=== PATIENT | female | born 1945 | race Native Hawaiian/Other Pacific Islander ===

== ENCOUNTER 2016-08-14 14:35 | Inpatient (IN) | payer OTHER, MEDICAID ==
[2016-08-14 15:40] LABS: BASO # 0.1 K/uL (0.0-0.2); BASO % 0.8 % (0.0-2.0); EOS % 0.2 % (0.0-4.0); HEMATOCRIT 27.6 % (34.0-47.0); LYMPH # 1.7 K/uL (1.0-4.3); LYMPH % 14.7 % (20.0-40.0); MEAN CELL VOLUME 96.6 fL (81.0-99.0); MEAN CORPUSCULAR HEMOGLOBIN 31.6 pg (27.0-31.0); MEAN CORPUSCULAR HGB CONC 32.7 g/dL (33.0-37.0); MEAN PLATELET VOLUME 8.9 fL (7.2-11.7); MONO % 8.4 % (0.0-10.0); RED CELL DISTRIBUTION WIDTH 18.6 % (11.5-14.5); WHITE BLOOD COUNT 11.8 K/uL (4.8-10.8)
--- NOTE | 2016-08-14 15:43 | C.PDOC ---
History Of Present Illness 70-year-old female, PMHx includes Pancreatic CA, on hospice w/ Biliary drain, presents to the emergency department with complaints of worsening abdominal pain , distention and nausea. as per family, pt had "fluid drained" a few weeks ago at another facility. family advises pt is no longer receiving treatment for her malignany. Patient denies fevers or any other complaints at this time. Time Seen by Provider: 08/14/16 14:54 Chief Complaint (Nursing): Abdominal Pain History Per: Patient History/Exam Limitations: no limitations Onset/Duration Of Symptoms: Days Current Symptoms Are (Timing): Still Present Severity: Moderate Past Medical History Reviewed: Historical Data, Nursing Documentation, Vital Signs Vital Signs: Last Vital Signs Temp 97.6 F 08/15/16 07:36 Pulse 80 08/15/16 07:36 Resp 20 08/15/16 07:36 BP 120/74 08/15/16 07:36 Pulse Ox 98 08/15/16 07:36 - Medical History PMH: HTN Family History: States: No Known Family Hx - Social History Hx Alcohol Use: No Hx Substance Use: No - Immunization History Hx Tetanus Toxoid Vaccination: No Hx Influenza Vaccination: No Hx Pneumococcal Vaccination: No Review Of Systems Except As Marked, All Systems Reviewed And Found Negative. Constitutional: Negative for: Fever Gastrointestinal: Positive for: Nausea, Abdominal Pain ((+) distention). Negative for: Vomiting, Diarrhea Musculoskeletal: Negative for: Back Pain Physical Exam - Physical Exam Appears: Non-toxic, No Acute Distress, Other (Cachectic) Skin: Warm, Dry, No Rash Oral Mucosa: Moist Neck: Normal ROM Cardiovascular: Rhythm Regular Respiratory: Normal Breath Sounds, No Accessory Muscle Use Gastrointestinal/Abdominal: Soft, Tenderness (non focal. diffuse), No Guarding, No Rebound, Other (Biliary drain) Extremity: Left: No Pedal Edema ED Course And Treatment - Laboratory Results Result Diagrams: 08/15/16 07:08 08/15/16 07:08 O2 Sat by Pulse Oximetry: 100 Medical Decision Making Medical Decision Making: pt on hospice. discussed extensively at bedside about goals of care. specifically requesting pt be evaluated for abdominal pain, and "have fluid taken out". agree to ct imaing. r/o ascities, complication of biliary stent. 630: noted ct with moderate ascities. again discussed goals of care with family. family requesting pt be admitted and have eval by possible drainage. dr lynch accepts. family confirms that pt has dni/dnr. Disposition - Disposition Disposition: HOSPITALIZED Disposition Time: 18:29 Condition: STABLE - Clinical Impression Clinical Impression: Ascites, Abdominal pain - Scribe Statement The provider has reviewed the documentation as recorded by the Karinaibtyrel Cherry All medical record entries made by the Scribe were at my direction and personally dictated by me. I have reviewed the chart and agree that the record accurately reflects my personal performance of the history, physical exam, medical decision making, and the department course for this patient. I have also personally directed, reviewed, and agree with the discharge instructions and disposition. Decision To Admit - Pt Status Changed To: Hospital Disposition Of: Inpatient - Admit Certification Admit to Inpatient:: After my assessment, the patient will require hospitalization for at least two midnights. This is because of the severity of symptoms shown, intensity of services needed, and/or the medical risk in this patient being treated as an outpatient. - InPatient: Physician Admission Certification:: pt will need possible drainage of ascites, eval by surgery for biliary drain - . Bed Request Type: Regular Admitting Physician: Abel Lynch Jr. Patient Diagnosis: Ascites, Abdominal pain
[2016-08-14 15:44] LABS: CHLORIDE 100 mmol/L (98-107); POTASSIUM 3.9 mmol/L (3.6-5.2); SODIUM 130 mmol/L (132-148)
[2016-08-14 15:46] LABS: GFR AFRICAN-AMERICAN > 60
[2016-08-14 15:47] LABS: ALB/GLOB RATIO 0.5 (1.0-2.1); ALKALINE PHOSPHATASE 208 U/L (38-126); ALT/SGPT 24 U/L (9-52); AST/SGOT 46 U/L (14-36); BILIRUBIN,TOTAL 4.4 mg/dL (0.2-1.3); BLOOD UREA NITROGEN 9 mg/dL (7-17); CALCIUM 7.3 mg/dl (8.6-10.4); CARBON DIOXIDE 22 mmol/L (22-30); GLUCOSE,RANDOM 219 mg/dL (65-105); TOTAL PROTEIN 6.3 g/dL (6.3-8.3)
[2016-08-14 16:35] LABS: INR 1.4
[2016-08-14] MEDS ORDERED: Iodixanol 320 MG/ML 100 ML BOTTLE IV ONE (16:55)
--- NOTE | 2016-08-14 18:22 | CT ---
PROCEDURE: CT Abdomen and Pelvis with contrast HISTORY: abd pain/distention ho of pancreatic ca COMPARISON: None. TECHNIQUE: Contrast dose: 100 mL Visipaque 320. Axial and reformatted coronal and sagittal CT images of the abdomen and pelvis were obtained after IV contrast administration. Radiation dose: Total exam DLP = 431.75 mGy-cm. This CT exam was performed using one or more of the following dose reduction techniques: Automated exposure control, adjustment of the mA and/or kV according to patient size, and/or use of iterative reconstruction technique. FINDINGS: LOWER THORAX: Cardiomegaly is seen. There is a small right pleural effusion. LIVER: There is suspicious for cirrhotic changes. There are multiple low lesions in the liver suspicious for metastasis. There is percutaneous biliary drainage through left liver lobe extending to the common bile duct and extending to the duodenum. GALLBLADDER AND BILE DUCTS: The gallbladder is mildly to moderately distended. PANCREAS: Pancreatic mass lesion is noted. The pancreatic body and tail is atrophy K associated with dilated main pancreatic duct. SPLEEN: Unremarkable. ADRENALS: Unremarkable. No mass. KIDNEYS AND URETERS: Unremarkable. No hydronephrosis. No solid mass. There is 9 millimeters cyst seen in the midpole right kidney. VASCULATURE: Unremarkable. No aortic aneurysm. BOWEL: Moderate the stomach wall thickening seen. Mildly dilated small bowel loops demonstrate diffuse wall thickening. No evidence of high-grade bowel obstruction APPENDIX: No evidence of appendicitis. PERITONEUM: Moderate to large amount of ascites seen. LYMPH NODES: Mildly enlarged lymph nodes seen the upper abdomen. BLADDER: Unremarkable. REPRODUCTIVE: Unremarkable. BONES: No acute fracture. OTHER FINDINGS: [id number] soft tissue edema/ anasarca seen. IMPRESSION: Pancreatic head mass. Multiple lesions in the liver suggestive of metastasis. Percutaneous biliary drainage extending to the duodenum. Moderate amount of ascites in the abdomen and pelvis. Moderate stomach wall thickening and mildly dilated small bowel loops demonstrate [id number] wall thickening.
--- NOTE | 2016-08-14 20:17 | CP.PCM.HP ---
History of Present Illness - History of Present Illness History of Present Illness: CC:" stomach pains and belly getting bigger" 70 F with PMH of Pancreatic CA on hospice w/ Biliary drain presents to the emergency department for complaints of worsening abdominal pain/distention and nausea. Patient's family was bedside and provided most of the history. Family states that patient has been experiencing these symptoms for about 1 week and have gotten worse over the last 2 days. They report that the patient have never experienced pain or distention like this in the past. She has also had decreased appetite over the last few months. Patient does not follow with an Oncologist, only a Surgeon at [facility]. She was placed on hospice since the malignancy is encompassing the pancreatic head, vessels, and a portion of the liver. Six months ago she had a gastric bypass due to an obstruction in the duodenum. Last week, the patient had a cholecystotomy tube placed to relieve a biliary obstruction. Patient rated the pain 9/10 in severity. She described the pain as a constant discomfort located diffusely throughout the abdomen. Patient denies any alleviating or exacerbating factors. Patient reports to having normal BMs and flatus. Admits to weakness, weight loss, anorexia, abd pain, nausea. Denies fever/chills, cp, sob, vomiting, diarrhea, constipation, numbness /tingling, palpitations, incontinence, weight gain, LE edema. Surgeon: at [facility] PMH: Pancreatic CA, HTN Meds: As per EMR Allergy: NKDA PSH: Gastrojejunostomy, Chloecystotomy Hosp: Gastrojejunostomy, Pancreatic CA FH: Denies Social: Denies tobacco/ETOH/illicit drug use, lives with family Present on Admission - Present on Admission Any Indicators Present on Admission: No History of DVT/PE: No History of Uncontrolled Diabetes: No Urinary Catheter: No Decubitus Ulcer Present: No Review of Systems - Constitutional Constitutional: Anorexia, Weight Loss. absent: Chills, Fever, Headache, Weight Gain - EENT Eyes: absent: Blurred Vision, Change in Vision, Loss of Peripheral Vision Ears: absent: Ear Discharge, Ear Pain, Dizziness Nose/Mouth/Throat: absent: Nasal Congestion, Nasal Discharge, Sore Throat, Neck Mass - Breasts Breasts: absent: Mass, Pain, Swelling - Cardiovascular Cardiovascular: Leg Edema. absent: Chest Pain, Chest Pain at Rest, Chest Pain with Activity, Dyspnea, Palpitations, Syncope - Respiratory Respiratory: absent: Cough, Dyspnea, Hemoptysis, Dyspnea on Exertion, Wheezing - Gastrointestinal Gastrointestinal: Abdominal Pain, Bloating, Early Satiety, Nausea. absent: Belching, Change in Bowel Habits, Coffee Ground Emesis, Constipation, Diarrhea, Dysphagia, Fecal Incontinence, Hematemesis, Hematochezia, Melena, Vomiting - Genitourinary Genitourinary: absent: Change in Urinary Stream, Difficulty Urinating, Dysuria, Urinary Incontinence - Musculoskeletal Musculoskeletal: Arthralgias, Myalgias - Integumentary Integumentary: absent: Changing Lesions, New Lesions - Neurological Neurological: Weakness. absent: Dizziness, Numbness, Headaches, Loss of Vision , Syncope, Tingling, Tremor, Vertigo - Psychiatric Psychiatric: absent: Anxiety, Depression, Homicidal Ideation, Suicidal Ideation - Endocrine Endocrine: Fatigue. absent: Palpitations, Polydipsia, Polyphagia, Polyuria - Hematologic/Lymphatic Hematologic: absent: Easy Bleeding, Easy Bruising, Lymphadenopathy Past Patient History - Past Social History Smoking Status: Never Smoked - CARDIAC Hx Hypertension: Yes - ENDOCRINE/METABOLIC Hx Diabetes Mellitus Type 1: Yes - HEMATOLOGICAL/ONCOLOGICAL Other/Comment: Liver Ca - PSYCHIATRIC Hx Substance Use: No - SURGICAL HISTORY Hx Surgeries: Yes Hx Gastric Bypass Surgery: Yes Other/Comment: Bile drain - ANESTHESIA Hx Anesthesia: Yes Hx Anesthesia Reactions: No Meds Allergies/Adverse Reactions: Allergies Allergy/AdvReac Type Severity Reaction Status Date / Time No Known Allergies Allergy Unverified 08/14/16 14:57 Physical Exam - Constitutional Appears: No Acute Distress - Head Exam Head Exam: ATRAUMATIC, NORMOCEPHALIC - Eye Exam Eye Exam: EOMI, Normal appearance, Scleral icterus Pupil Exam: PERRL - ENT Exam ENT Exam: Mucous Membranes Dry - Neck Exam Neck exam: Positive for: Normal Inspection - Respiratory Exam Respiratory Exam: Clear to Auscultation Bilateral, NORMAL BREATHING PATTERN - Cardiovascular Exam Cardiovascular Exam: REGULAR RHYTHM, +S1, +S2 - GI/Abdominal Exam GI & Abdominal Exam: Diminished Bowel Sounds, Distended, Guarding (voluntary on deep palpation), Soft, Tenderness (diffuse). absent: Firm, Rebound, Rigid Additional comments: (+) shifting dullness (+) fluid wave cholecystotomy tub ein place drain dark orange-yellow fluid - Extremities Exam Extremities exam: Positive for: normal capillary refill, pedal edema, pedal pulses present. Negative for: calf tenderness, tenderness - Back Exam Back exam: absent: CVA tenderness (L), CVA tenderness (R) - Neurological Exam Neurological exam: Alert, CN II-XII Intact, Oriented x3 - Psychiatric Exam Psychiatric exam: Normal Affect, Normal Mood - Skin Skin Exam: Dry, Intact Results - Vital Signs Recent Vital Signs: Last Vital Signs Temp 98.0 F 08/14/16 14:38 Pulse 79 08/14/16 19:35 Resp 16 08/14/16 19:35 BP 148/74 08/14/16 19:35 Pulse Ox 97 08/14/16 19:35 - Labs Result Diagrams: 08/14/16 15:30 08/14/16 15:30 Assessment & Plan - Assessment and Plan (Free Text) Plan: 1. Abdominal Pain/distention history of Pancreatic Ca with liver metastases with Ascites Ct abd/pelvis: Pancreatic head mass. Multiple lesions in the liver suggestive of metastasis. Percutaneous biliary drainage extending to the duodenum. Moderate amount of ascites in the abdomen and pelvis. Moderate stomach wall thickening and mildly dilated small bowel loops demonstrate [id number] wall thickening (see full report) Colace 100 mg PO TID Sennosides A B 8.6 mg PO BID Lasix 20 mg PO daily Zofran 4 mg IVP Q6H PRN nausea Dilaudid 0.5 mg IVP Q4H PRN pain 2. History of Pancreatic CA Pancreatic enzymes 4,[address] abd/pelvis: Pancreatic head mass. Multiple lesions in the liver suggestive of metastasis. Percutaneous biliary drainage extending to the duodenum. Moderate amount of ascites in the abdomen and pelvis. Moderate stomach wall thickening and mildly dilated small bowel loops demonstrate [id number]-ko-emellvwi wall thickening (see full report) 3. HTN Amlodipine 5 mg PO daily Lasix 20 mg PO daily 4. Prophylactic Measures Prontonix 40 mg IVP daily SCDs contraindicated HOLD chemical anticoagulation for possible therapeutic paracentesis Colace 100 mg PO TID Sennosides A B 8.6 mg PO BID
[2016-08-14 20:36] VITALS: RESP 20
[2016-08-14] MEDS: HYDROmorphone 0.5 mg/0.5 ml ISec IVP PRN (22:49)
--- NOTE | 2016-08-15 07:17 | CP.PCM.PN ---
<IdrisAlyson - Last Filed: 08/15/16 13:18> Subjective - Date & Time of Evaluation Date of Evaluation: 08/15/16 Time of Evaluation: 07:15 - Subjective Subjective: PLEASE NOTE: PATIENT HAS BEEN TRANSFERRED TO DR. Maria Luisa MAE[facility] AT FAMILY'S REQUEST. PGY1 Medicine note for Dr. Flynn Patient seen and examined at bedside. Patient continues to complain of dull abdominal pain and distention which is what brought her in. She denied headache , dizziness, chest pain, palpitations, SOB, cough, nausea, vomiting, bowel/ bladder complaints, pain/swelling of her legs bilaterally. Her at bedside reported she has had a decreased appetite and has had the abdominal pain for a while which has been worsening which is why she came in to the hospital. Objective - Vital Signs/Intake and Output Vital Signs (last 24 hours): Temp Pulse Resp BP Pulse Ox 97.9 F 77 20 143/79 100 08/15/16 00:00 08/15/16 00:00 08/15/16 00:00 08/14/16 20:10 08/15/16 00:00 Intake and Output: 08/15/16 08/15/16 06:59 18:59 Intake Total 150 Balance 150 - Medications Medications: Current Medications Amlodipine Besylate (Norvasc) 5 mg PO DAILY STEPHANIE Docusate Sodium (Colace) 100 mg PO TID STEPHANIE Furosemide (Lasix) 20 mg PO DAILY STEPHANIE Hydromorphone HCl (Dilaudid) 0.5 mg IVP Q4H PRN PRN Reason: Pain, moderate (4-7) Last Admin: 08/14/16 22:49 Dose: 0.5 mg Ondansetron HCl (Zofran Inj) 4 mg IVP Q6 PRN PRN Reason: Nausea/Vomiting Pantoprazole Sodium (Protonix Inj) 40 mg IVP DAILY [facility] Pneumococcal Polyvalent Vaccine (Pneumovax 23 Vaccine) 0.5 ml IM .ONCE ONE Stop: 08/16/16 10:01 Sennosides (Senokot Tab) 8.6 mg PO BID STEPHANIE - Labs Labs: PT 15.8 SECONDS (9.7-12.2) H 08/14/16 16:22 INR 1.4 08/14/16 16:22 APTT 27 SECONDS (21-34) 08/14/16 16:22 Assessment and Plan - Assessment and Plan (Free Text) Assessment: PLEASE NOTE: PATIENT HAS BEEN TRANSFERRED TO DR. Maria Luisa [facility] AT FAMILY[facility]S REQUEST. Plan: PLEASE NOTE: PATIENT HAS BEEN TRANSFERRED TO DR. Maria Luisa [facility] AT FAMILY'S REQUEST. <Abel Flynn Jr. - Last Filed: 08/18/16 11:08> Objective - Vital Signs/Intake and Output Vital Signs (last 24 hours): Temp Pulse Resp BP Pulse Ox 98.5 F 95 H 20 120/79 97 08/16/16 16:44 08/16/16 16:44 08/16/16 16:44 08/16/16 16:44 08/16/16 16:44 - Labs Labs: 08/16/16 06:59 08/16/16 06:59 PT 14.8 SECONDS (9.7-12.2) H 08/15/16 07:08 INR 1.3 08/15/16 07:08 APTT 23 SECONDS (21-34) 08/15/16 07:08 Attending/Attestation - Attestation I have personally seen and examined this patient.: Yes I have fully participated in the care of the patient.: Yes I have reviewed all pertinent clinical information, including history, physical exam and plan: Yes Notes (Text): 08/18/16 11:07 Agree with resident note and plan of care
[2016-08-15 07:25] LABS: BASO # 0.1 K/uL (0.0-0.2); BASO % 1.1 % (0.0-2.0); EOS # 0.1 K/uL (0.0-0.7); EOS % 0.6 % (0.0-4.0); HEMATOCRIT 29.2 % (34.0-47.0); LYMPH # 1.8 K/uL (1.0-4.3); LYMPH % 18.3 % (20.0-40.0); MEAN CELL VOLUME 96.3 fL (81.0-99.0); MEAN CORPUSCULAR HEMOGLOBIN 32.1 pg (27.0-31.0); MEAN CORPUSCULAR HGB CONC 33.4 g/dL (33.0-37.0); MEAN PLATELET VOLUME 8.8 fL (7.2-11.7); MONO # 0.9 K/uL (0.0-0.8); MONO % 9.2 % (0.0-10.0); NRBC % 0.1 % (0.0-2.0); RED CELL DISTRIBUTION WIDTH 18.5 % (11.5-14.5); WHITE BLOOD COUNT 9.9 K/uL (4.8-10.8)
[2016-08-15 07:34] LABS: INR 1.3
[2016-08-15 07:41] LABS: CHLORIDE 100 mmol/L (98-107); SODIUM 131 mmol/L (132-148)
[2016-08-15 07:44] LABS: ALB/GLOB RATIO 0.5 (1.0-2.1); ALKALINE PHOSPHATASE 215 U/L (38-126); ALT/SGPT 25 U/L (9-52); AST/SGOT 48 U/L (14-36); BILIRUBIN,TOTAL 4.5 mg/dL (0.2-1.3); BLOOD UREA NITROGEN 9 mg/dL (7-17); CALCIUM 7.7 mg/dl (8.6-10.4); CARBON DIOXIDE 25 mmol/L (22-30); GFR AFRICAN-AMERICAN > 60; GLUCOSE,RANDOM 139 mg/dL (65-105); TOTAL PROTEIN 6.5 g/dL (6.3-8.3)
[2016-08-15] MEDS: LIPASE/PROTEASE/AMYLASE 4,200 U ECC PO SCH ×3 (10:50→17:44)
[2016-08-15] MEDS: HYDROmorphone 0.5 mg/0.5 ml ISec IVP PRN ×2 (12:32→19:57)
--- NOTE | 2016-08-15 13:12 | CP.PCM.CON ---
History of Present Illness - History of Present Illness History of Present Illness: Palliative consult Requested by Jaymie CISSE Reason: goals of care, hospice Patient is a 70 yo lady admitted from home with worsening abdominal pain. As per , patient was at home with [facility] for 2 days only. Patient could not tolerate abdominal distention and family brought her to ED. The CT abdomen was significant for abd ascites and metastatic liver disease. Patient was started on Lasix and Dilaudid. PMH: pancreatic CA, biliary drain Soc. hx: lives at home Fam. hx: unknown Review of Systems - Constitutional Constitutional: Weakness - EENT Eyes: absent: As Per HPI, Blind Spots, Blurred Vision, Change in Vision, Decreased Night Vision, Diplopia, Discharge, Dry Eye, Exophthalmos, Floaters, Irritation, Itchy Eyes, Loss of Peripheral Vision, Pain, Photophobia, Requires Corrective Lenses, Sees Flashes, Spots in Vision, Tunnel Vision, Other Visual Disturbances, Loss of Vision, Other Ears: absent: As Per HPI, Decreased Hearing, Ear Discharge, Ear Pain, Tinnitus, Abnormal Hearing, Disequilibrium, Dizziness, Other Nose/Mouth/Throat: absent: As Per HPI, Epistaxis, Nasal Congestion, Nasal Discharge, Nasal Obstruction, Nasal Trauma, Nose Pain, Post Nasal Drip, Sinus Pain, Sinus Pressure, Bleeding Gums, Change in Voice, Dental Pain, Dry Mouth, Dysphagia, Halitosis, Hoarsness, Lip Swelling, Mouth Lesions, Mouth Pain, Odynophagia, Sore Throat, Throat Swelling, Tongue Swelling, Facial Pain, Neck Pain, Neck Mass, Other - Breasts Breasts: absent: As Per HPI, Change in Shape, Mass, Pain, Nipple Discharge, Nipple Inversion, Skin Changes, Swelling, Other - Cardiovascular Cardiovascular: Edema - Respiratory Respiratory: Dyspnea on Exertion - Gastrointestinal Gastrointestinal: Bloating, Nausea - Genitourinary Genitourinary: absent: As Per HPI, Change in Urinary Stream, Difficulty Urinating, Dysuria, Flank Pain, Hematuria, Pyuria, Nocturia, Urinary Incontinence, Urinary Frequency, Urinary Hesitance, Urinary Urgency, Voiding Freq/Small Amts, Freq UTI, Hx Renal/Bladder Calculi, Hx /Renal Surgery, Bladder Distension, Other - Reproductive: Female Reproductive:Female: Post Menopausal - Menstruation Menstruation: Post Menopausal - Musculoskeletal Musculoskeletal: Muscle Weakness - Integumentary Integumentary: Dry Skin - Neurological Neurological: Weakness - Psychiatric Psychiatric: absent: As Per HPI, Abnormal Sleep Pattern, Anhedonia, Anxiety, Auditory Hallucinations, Behavioral Changes, Change in Appetite, Change in Libido, Confusion, Depression, Difficulty Concentrating, Hallucinations, Homicidal Ideation, Hopelessness, Irritability, Memory Loss, Mood Swings, Panic Attacks, Paranoia, Suicidal Ideation, Visual Hallucinations, Tactile Hallucinations, Other - Endocrine Endocrine: absent: As Per HPI, Change in Body Appearance, Change in Libido, Cold Intolorance, Deepening of Voice, Excessive Sweating, Fatigue, Flushing, Heat Intolorance, Increase in Ring/Shoe/Hat Size, Palpitations, Polydipsia, Polyphagia, Polyuria, Other - Hematologic/Lymphatic Hematologic: absent: As Per HPI, Easy Bleeding, Easy Bruising, Lymphadenopathy, Other Past Patient History - Past Social History Smoking Status: Never Smoked - CARDIAC Hx Hypertension: Yes - ENDOCRINE/METABOLIC Hx Diabetes Mellitus Type 1: Yes - HEMATOLOGICAL/ONCOLOGICAL Other/Comment: Liver Ca - MUSCULOSKELETAL/RHEUMATOLOGICAL Hx Falls: No - PSYCHIATRIC Hx Substance Use: No - SURGICAL HISTORY Hx Surgeries: Yes Hx Gastric Bypass Surgery: Yes Other/Comment: Bile drain - ANESTHESIA Hx Anesthesia: Yes Hx Anesthesia Reactions: No Meds Allergies/Adverse Reactions: Allergies Allergy/AdvReac Type Severity Reaction Status Date / Time No Known Allergies Allergy Unverified 08/14/16 14:57 - Medications Medications: Current Medications Amlodipine Besylate (Norvasc) 5 mg PO DAILY [facility] Last Admin: 08/15/16 10:50 Dose: 5 mg Docusate Sodium (Colace) 100 mg PO TID [facility] Last Admin: 08/15/16 10:49 Dose: 100 mg Furosemide (Lasix) 20 mg PO DAILY [facility] Last Admin: 08/15/16 10:49 Dose: 20 mg Hydromorphone HCl (Dilaudid) 0.5 mg IVP Q4H PRN PRN Reason: Pain, moderate (4-7) Last Admin: 08/15/16 12:32 Dose: 0.5 mg Ondansetron HCl (Zofran Inj) 4 mg IVP Q6 PRN PRN Reason: Nausea/Vomiting Pantoprazole Sodium (Protonix Inj) 40 mg IVP DAILY [facility] Last Admin: 08/15/16 10:49 Dose: 40 mg Pneumococcal Polyvalent Vaccine (Pneumovax 23 Vaccine) 0.5 ml IM .ONCE ONE Stop: 08/16/16 10:01 Sennosides (Senokot Tab) 8.6 mg PO BID [facility] Last Admin: 08/15/16 10:49 Dose: 8.6 mg Physical Exam - Constitutional Appears: Chronically Ill - Head Exam Head Exam: ATRAUMATIC, NORMAL INSPECTION, NORMOCEPHALIC - Eye Exam Eye Exam: EOMI, Normal appearance, PERRL Pupil Exam: NORMAL ACCOMODATION, PERRL Additional comments: sclera yellow - ENT Exam ENT Exam: Mucous Membranes Dry - Neck Exam Neck exam: Positive for: Normal Inspection - Respiratory Exam Respiratory Exam: Decreased Breath Sounds, NORMAL BREATHING PATTERN - Cardiovascular Exam Cardiovascular Exam: Tachycardia, REGULAR RHYTHM, +S1, +S2 - GI/Abdominal Exam GI & Abdominal Exam: Distended, Guarding, Hypoactive Bowel Sounds - Rectal Exam Rectal Exam: Deferred - Extremities Exam Extremities exam: Positive for: pedal edema - Back Exam Back exam: CVA tenderness (R) - Neurological Exam Neurological exam: Alert, Oriented x3 - Psychiatric Exam Psychiatric exam: Anxious - Skin Additional comments: jaundice Results - Vital Signs Recent Vital Signs: Last Vital Signs Temp 97.6 F 08/15/16 07:36 Pulse 80 08/15/16 07:36 Resp 20 08/15/16 07:36 BP 120/74 08/15/16 10:49 Pulse Ox 100 08/15/16 09:13 - Labs Result Diagrams: 08/15/16 07:08 08/15/16 07:08 Labs: Laboratory Results - last 24 hr 08/14/16 08/15/16 08/15/16 21:09 07:08 07:08 WBC 9.9 RBC 3.03 L Hgb 9.7 L Hct 29.2 L MCV 96.3 MCH 32.1 H MCHC 33.4 RDW 18.5 H Plt Count 369 MPV 8.8 Neut % (Auto) 70.8 Lymph % (Auto) 18.3 L Howell % (Auto) 9.2 Eos % (Auto) 0.6 Baso % (Auto) 1.1 Neut # 7.0 Lymph # 1.8 Howell # 0.9 H Eos # 0.1 Baso # 0.1 PT 14.8 H INR 1.3 APTT 23 Sodium Potassium Chloride Carbon Dioxide Anion Gap BUN Creatinine Est GFR ( Amer) Est GFR (Non-Af Amer) POC Glucose (mg/dL) 165 H Random Glucose Calcium Total Bilirubin AST ALT Alkaline Phosphatase Total Protein Albumin Globulin Albumin/Globulin Ratio 08/15/16 08/15/16 08/15/16 07:08 07:16 11:18 WBC RBC Hgb Hct MCV MCH MCHC RDW Plt Count MPV Neut % (Auto) Lymph % (Auto) Howell % (Auto) Eos % (Auto) Baso % (Auto) Neut # Lymph # Howell # Eos # Baso # PT INR APTT Sodium 131 L Potassium 4.0 Chloride 100 Carbon Dioxide 25 Anion Gap 10 BUN 9 Creatinine 0.6 L Est GFR ( Amer) > 60 Est GFR (Non-Af Amer) > 60 POC Glucose (mg/dL) 165 H 206 H Random Glucose 139 H Calcium 7.7 L Total Bilirubin 4.5 H AST 48 H ALT 25 Alkaline Phosphatase 215 H Total Protein 6.5 Albumin 2.2 L Globulin 4.3 H Albumin/Globulin Ratio 0.5 L Assessment & Plan - Assessment and Plan (Free Text) Assessment: Palliative consult Code status DNR/DNI, there was no supporting document on chart prior to consult , PPS 20% I reviewed medical records, all diagnostic studies, examined and interviewed patient in the bed, discussed goals of care with patient and her and discussed my findings with Idris CISSE. Patient is alert, oriented X 3, looking chronically ill. Skin and sclera are yellow. Poor skin turgor. Abdomen distended, guarded, patient reports discomfort due to distention and bland pain to RUQ. The T tube to left upper quadrant does not drain at present, but the dressing around the insertion site was saturated with dark yellow drainage. As per , the collection is about 70 to 100 cc per day, but since the admission the drain put out 0 drainage. suggests that patient had poor food intake for the last week due to abdominal discomfort. There is significant edema to LEs. I discussed goals of care for this patient and made sure patient and understood the meaning of Hospice and comfort care. They both claimed they did. The patient was very clear that she would prefer natural and was against any aggressive life supporting measures. i assisted patient with completing the POLST calling for DNR/DNI status. supported her decision. This was discussed to Idris CISSE . Patient also had concerns about paracentesis and if it was to be done today. His goal is to bring his home once the paracentesis was over with. Impression * This is a chronically ill patient who was under the hospice care for 2 days only prior to this admission * Chronic abdominal pain and distention secondary to metastatic disease * Poor PO intake due to abdominal pain * Very poor quality of life secondary to advanced cancer * Patient and her are looking forward going home once the symptoms controlled Suggestion * DNR/DNI, POLST on chart * Would check the billiary drain for patency * Paracentesis for increased abdominal comfort * Discharge home when stable Thank you very much for consulting Palliative care
[2016-08-15] MEDS: Simethicone 80 mg Chewtab PO SCH (21:37)
--- NOTE | 2016-08-15 22:48 | CP.PCM.PN ---
Subjective - Date & Time of Evaluation Date of Evaluation: 08/15/16 Time of Evaluation: 16:00 - Subjective Subjective: clinically same Objective - Vital Signs/Intake and Output Vital Signs (last 24 hours): Temp Pulse Resp BP Pulse Ox 98 F 85 20 135/80 97 08/15/16 15:25 08/15/16 15:25 08/15/16 15:25 08/15/16 15:25 08/15/16 15:25 Intake and Output: 08/15/16 08/16/16 18:59 06:59 Intake Total 380 Output Total 0 Balance 380 - Medications Medications: Current Medications Amlodipine Besylate (Norvasc) 5 mg PO DAILY [facility] Last Admin: 08/15/16 10:50 Dose: 5 mg Docusate Sodium (Colace) 100 mg PO TID [facility] Last Admin: 08/15/16 17:44 Dose: 100 mg Furosemide (Lasix) 20 mg PO DAILY [facility] Last Admin: 08/15/16 10:49 Dose: 20 mg Heparin Sodium (Porcine) (Heparin) 5,000 units SC Q12 [facility] Last Admin: 08/15/16 21:36 Dose: 5,000 units Hydromorphone HCl (Dilaudid) 0.5 mg IVP Q4H PRN PRN Reason: Pain, moderate (4-7) Last Admin: 08/15/16 19:57 Dose: 0.5 mg Ondansetron HCl (Zofran Inj) 4 mg IVP Q6 PRN PRN Reason: Nausea/Vomiting Pantoprazole Sodium (Protonix Inj) 40 mg IVP DAILY [facility] Last Admin: 08/15/16 10:49 Dose: 40 mg Pneumococcal Polyvalent Vaccine (Pneumovax 23 Vaccine) 0.5 ml IM .ONCE ONE Stop: 08/16/16 10:01 Sennosides (Senokot Tab) 8.6 mg PO BID [facility] Last Admin: 08/15/16 17:44 Dose: 8.6 mg Simethicone (Mylicon Chew Tab) 80 mg PO TID [facility] Last Admin: 08/15/16 21:37 Dose: 80 mg Temazepam (Restoril) 7.5 mg PO HS PRN PRN Reason: Insomnia - Labs Labs: 08/15/16 07:08 08/15/16 07:08 PT 14.8 SECONDS (9.7-12.2) H 08/15/16 07:08 INR 1.3 08/15/16 07:08 APTT 23 SECONDS (21-34) 08/15/16 07:08 Assessment and Plan - Assessment and Plan (Free Text) Plan: Patient seen and examined at bedside. Patient continues to complain of dull abdominal pain and distention which is what brought her in. She denied headache , dizziness, chest pain, palpitations, SOB, cough, nausea, vomiting, bowel/ bladder complaints, pain/swelling of her legs bilaterally. Her at bedside reported she has had a decreased appetite and has had the abdominal pain for a while which has been worsening which is why she came in to the hospital. ir for ascitic tapping and also dr. vishal agarwal for cancerwork up
[2016-08-16 07:21] LABS: RBC URINE 5 /hpf (0-3); URINE BACTERIA RARE (<OCC); URINE BILIRUBIN 1+ (NEGATIVE); URINE BLOOD NEGATIVE (NEGATIVE); URINE GLUCOSE (UA) NORMAL (Normal); URINE HYALINE CAST 0-2 /lpf (0-2); URINE KETONE NEGATIVE (NEGATIVE); URINE LEUKOCYTE ESTERASE NEG Leu/uL (Negative); URINE PROTEIN NEGATIVE (NEGATIVE); WBC URINE 6 /hpf (0-5)
[2016-08-16 07:36] LABS: BASO # 0.1 K/uL (0.0-0.2); BASO % 0.8 % (0.0-2.0); EOS % 0.4 % (0.0-4.0); HEMATOCRIT 26.7 % (34.0-47.0); LYMPH # 1.6 K/uL (1.0-4.3); MEAN CELL VOLUME 96.5 fL (81.0-99.0); MEAN CORPUSCULAR HGB CONC 33.2 g/dL (33.0-37.0); MEAN PLATELET VOLUME 9.5 fL (7.2-11.7); MONO # 0.9 K/uL (0.0-0.8); MONO % 9.8 % (0.0-10.0); RED CELL DISTRIBUTION WIDTH 17.5 % (11.5-14.5); WHITE BLOOD COUNT 9.5 K/uL (4.8-10.8)
[2016-08-16 07:37] LABS: URINE COLOR YELLOW (YELLOW); URINE URIC ACID CRYSTALS OCC /hpf (<OCC)
[2016-08-16 07:38] LABS: CHLORIDE 99 mmol/L (98-107); SODIUM 130 mmol/L (132-148)
[2016-08-16 07:39] LABS: POTASSIUM 4.1 mmol/L (3.6-5.2)
[2016-08-16 07:40] LABS: BILIRUBIN,TOTAL 4.3 mg/dL (0.2-1.3); GFR AFRICAN-AMERICAN > 60
[2016-08-16 07:41] LABS: ALB/GLOB RATIO 0.5 (1.0-2.1); ALKALINE PHOSPHATASE 213 U/L (38-126); ALT/SGPT 24 U/L (9-52); AST/SGOT 44 U/L (14-36); BLOOD UREA NITROGEN 11 mg/dL (7-17); CARBON DIOXIDE 22 mmol/L (22-30); GLUCOSE,RANDOM 260 mg/dL (65-105); PHOSPHOROUS 3.8 mg/dL (2.5-4.5); TOTAL PROTEIN 6.2 g/dL (6.3-8.3)
[2016-08-16 07:42] LABS: CALCIUM 7.5 mg/dl (8.6-10.4); MAGNESIUM 1.7 mg/dL (1.6-2.3)
[2016-08-16] MEDS ORDERED: Pneumococcal 23-Valent Vaccine IM ONE (10:00)
--- NOTE | 2016-08-16 11:49 | PCM.SURG1 ---
Surgeon's Initial Post Op Note - Surgeon's Notes Surgeon: Сергей Díaz MD [employer] Anchor: NONE Type of Anesthesia: Local Pre-Operative Diagnosis: Pancreatic cancer, ascites, abdominal pain. Operative Findings: US showed moderate ascites Post-Operative Diagnosis: Pancreatic cancer, ascites, abdominal pain. Operation Performed: US guided paracentesis. Specimen/Specimens Removed: 1.9 liters of eri colored ascites. Estimated Blood Loss: EBL {In ML}: 0 Blood Products Given: N/A Drains Used: No Drains Post-Op Condition: Fair Date of Surgery/Procedure: 08/16/16 Time of Surgery/Procedure: 11:40
--- NOTE | 2016-08-16 11:58 | CON ---
DATE: 08/16/2016 REASON FOR CONSULTATION: Metastatic pancreatic carcinoma. HISTORY OF PRESENT ILLNESS: A 70-year-old female who was jaundiced about a year ago, diagnosed to lima ve a small tumor in the pancreas, had a stent placement, clinically did well. Did not want any surge ry. About 6 months later, patient had again the problems and was admitted this time at [facility], had a surgery done; however, a few months later, the patient started getting j aundiced again, distention of the abdomen and eventually workup confirmed metastatic disease to the l iver and ascites, clinically deteriorated overall. So I am called on consult for evaluation and kofi tment. PAST MEDICAL HISTORY: As per history of present illness and hypertension. MEDICATIONS: Reviewed. ALLERGIES: No known drug allergies. SOCIAL HISTORY: Nonsmoker. No ethanol abuse. No drug abuse. Very supportive family. REVIEW OF SYSTEMS: Generalized weakness, decreased appetite, weight loss. Denies any fevers, chills . Some nauseous feeling, but no vomiting, no diarrhea. The abdominal discomfort is secondary to the ascites. PHYSICAL EXAMINATION: GENERAL: The patient is awake and alert, oriented, quiet, pleasant, not in acute distress at present time at rest. VITAL SIGNS: Temperature 98, pulse 85, blood pressure 135/80, respiration is 20. HEAD: Normocephalic, atraumatic. EYES: Conjunctivae pink. Sclerae icteric. Pupils reacting to light. EARS, NOSE AND THROAT: Normal. LUNGS: Decreased breath sounds at both the bases. HEART: S1, S2, regular, no gallop, no murmur. ABDOMEN: Mildly distended. LYMPH NODES: No cervical or axillary lymph nodes palpable. EXTREMITIES: No edema. LABORATORY DATA: Bilirubin is 4.5, SGOT 48, SGPT 25, alkaline phosphatase is 215, albumin is 2.2, gl obulin is 4.3. WBC is 9900, hemoglobin 9.7, hematocrit 29.2, platelet count 369,000. IMPRESSION: 1. Metastatic carcinoma of the pancreas to the liver and ascites. 2. Anemia of chronic disease. PLAN: Clinical status discussed with the daughter at length, able to discuss in [facility]. Aware of the prognosis. Agreeable to palliative care and supportive care along with hospice care at home, jose l padilla to take her at home. I agree with that. Will discuss with Dr. Agustin Godoy. Comforts should be a goal. Thank you for letting me participate in the care of this patient and I will follow up the patient wit h you. Pedro Gotti MD cc: [id number] TT: 08/16/2016 11:58:23 Confirmation # [id number] Dictation # [id number] tn
[2016-08-16] MEDS: Simethicone 80 mg Chewtab PO SCH ×3 (12:21→17:38)
[2016-08-16] MEDS: LIPASE/PROTEASE/AMYLASE 4,200 U ECC PO SCH ×2 (12:22→17:38)
--- NOTE | 2016-08-16 12:50 | US ---
Date of Procedure: 08/16/2016 PROCEDURE: Ultrasound-guided paracentesis, CPT 51434 Medications: 6cc 1% Lidocaine HISTORY: Ascites, abdominal pain, pancreatic cancer TECHNIQUE: Following informed consent , the patient was placed supine on the stretcher and the site was marked. A limited abdominal ultrasound was performed that showed a large amount of intra-abdominal fluid. Procedural time out was called and the Pt's abdomen was marked and prepped and draped in the usual sterile fashion. Ultrasound-guided large volume paracentesis performed. A total of 1.9 liters of eri colored fluid was removed without complication. IMPRESSION: Ultrasound-guided large volume paracentesis.
[2016-08-16 16:45] VITALS: BP 120/79; PULSE 95; TEMP 98.5; O2SAT 97
--- NOTE | 2016-08-16 16:52 | CP.PCM.PN ---
Subjective - Date & Time of Evaluation Date of Evaluation: 08/16/16 Time of Evaluation: 16:52 - Subjective Subjective: Awake, alert, responsive, no acute distress. Objective - Vital Signs/Intake and Output Vital Signs (last 24 hours): Temp Pulse Resp BP Pulse Ox 98.5 F 95 H 20 120/79 97 08/16/16 16:44 08/16/16 16:44 08/16/16 16:44 08/16/16 16:44 08/16/16 16:44 Intake and Output: 08/16/16 08/16/16 06:59 18:59 Intake Total 300 Output Total 0 20 Balance 0 280 - Medications Medications: Current Medications Amlodipine Besylate (Norvasc) 5 mg PO DAILY [facility] Last Admin: 08/16/16 09:56 Dose: 5 mg Docusate Sodium (Colace) 100 mg PO TID [facility] Last Admin: 08/16/16 13:49 Dose: Not Given Furosemide (Lasix) 20 mg PO DAILY [facility] Last Admin: 08/16/16 12:22 Dose: 20 mg Heparin Sodium (Porcine) (Heparin) 5,000 units SC Q12 [facility] Last Admin: 08/16/16 11:34 Dose: Not Given Hydromorphone HCl (Dilaudid) 0.5 mg IVP Q4H PRN PRN Reason: Pain, moderate (4-7) Last Admin: 08/15/16 19:57 Dose: 0.5 mg Ondansetron HCl (Zofran Inj) 4 mg IVP Q6 PRN PRN Reason: Nausea/Vomiting Pantoprazole Sodium (Protonix Inj) 40 mg IVP DAILY [facility] Last Admin: 08/16/16 12:21 Dose: 40 mg Sennosides (Senokot Tab) 8.6 mg PO BID [facility] Last Admin: 08/16/16 12:22 Dose: 8.6 mg Simethicone (Mylicon Chew Tab) 80 mg PO TID [facility] Last Admin: 08/16/16 13:50 Dose: Not Given Temazepam (Restoril) 15 mg PO HS PRN PRN Reason: Insomnia - Labs Labs: 08/16/16 06:59 08/16/16 06:59 PT 14.8 SECONDS (9.7-12.2) H 08/15/16 07:08 INR 1.3 08/15/16 07:08 APTT 23 SECONDS (21-34) 08/15/16 07:08 Assessment and Plan - Assessment and Plan (Free Text) Assessment: Patient is seen and examined. Awake, responsive, no acute distress. Patient diagnosed with pancreatic cancer is under home hospice, compassionate care. D/W DR Maria Luisa Godoy, plan to discharge home today under hospice care. Son at the bedside verbalized understanding of the plan.
[2016-08-16] MEDS ORDERED: (Novolog) Insulin Aspart, Recombinant 100 u/ml 10 ml vial SC ONE (17:15)
[2016-08-16] MEDS: HYDROmorphone 0.5 mg/0.5 ml ISec IVP PRN (17:46)
--- NOTE | 2016-08-16 18:09 | CP.PCM.PN ---
Subjective - Date & Time of Evaluation Date of Evaluation: 08/16/16 Time of Evaluation: 10:00 - Subjective Subjective: clinically same Objective - Vital Signs/Intake and Output Vital Signs (last 24 hours): Temp Pulse Resp BP Pulse Ox 98.5 F 95 H 20 120/79 97 08/16/16 16:44 08/16/16 16:44 08/16/16 16:44 08/16/16 16:44 08/16/16 16:44 Intake and Output: 08/16/16 08/16/16 06:59 18:59 Intake Total 300 Output Total 0 20 Balance 0 280 - Medications Medications: Current Medications Amlodipine Besylate (Norvasc) 5 mg PO DAILY [facility] Last Admin: 08/16/16 09:56 Dose: 5 mg Docusate Sodium (Colace) 100 mg PO TID [facility] Last Admin: 08/16/16 17:38 Dose: 100 mg Furosemide (Lasix) 20 mg PO DAILY [facility] Last Admin: 08/16/16 12:22 Dose: 20 mg Heparin Sodium (Porcine) (Heparin) 5,000 units SC Q12 [facility] Last Admin: 08/16/16 11:34 Dose: Not Given Hydromorphone HCl (Dilaudid) 0.5 mg IVP Q4H PRN PRN Reason: Pain, moderate (4-7) Last Admin: 08/16/16 17:46 Dose: 0.5 mg Ondansetron HCl (Zofran Inj) 4 mg IVP Q6 PRN PRN Reason: Nausea/Vomiting Pantoprazole Sodium (Protonix Inj) 40 mg IVP DAILY [facility] Last Admin: 08/16/16 12:21 Dose: 40 mg Sennosides (Senokot Tab) 8.6 mg PO BID [facility] Last Admin: 08/16/16 17:38 Dose: 8.6 mg Simethicone (Mylicon Chew Tab) 80 mg PO TID [facility] Last Admin: 08/16/16 17:38 Dose: 80 mg Temazepam (Restoril) 15 mg PO HS PRN PRN Reason: Insomnia - Labs Labs: 08/16/16 06:59 08/16/16 06:59 PT 14.8 SECONDS (9.7-12.2) H 08/15/16 07:08 INR 1.3 08/15/16 07:08 APTT 23 SECONDS (21-34) 08/15/16 07:08 - Constitutional Appears: Well - Head Exam Head Exam: ATRAUMATIC, NORMAL INSPECTION, NORMOCEPHALIC - Eye Exam Eye Exam: EOMI, Normal appearance, PERRL Pupil Exam: NORMAL ACCOMODATION, PERRL - ENT Exam ENT Exam: Mucous Membranes Moist, Normal Exam - Neck Exam Neck Exam: Full ROM, Normal Inspection. absent: Lymphadenopathy - Respiratory Exam Respiratory Exam: Decreased Breath Sounds - Cardiovascular Exam Cardiovascular Exam: REGULAR RHYTHM, +S1, +S2 - GI/Abdominal Exam GI & Abdominal Exam: Soft, Diminished Bowel Sounds - Rectal Exam Rectal Exam: Deferred Assessment and Plan (1) Abdominal pain Status: Acute (2) Ascites Status: Acute - Assessment and Plan (Free Text) Plan: bentley same dsichrgae under hospcie car fmily understand it s/p ascitic tapping
== END 2016-08-16 20:00 | disposition hospice, home (50) | DRG 436 ==
LOC: C.ER 14:35 → C.9E 18:51 → C.3T 19:34
PROVIDERS: ADMIT Internal Medicine Nephrology; ATTEND Internal Medicine Nephrology
PROC: 0W9G3ZZ Drainage of Peritoneal Cavity, Percutaneous Approach (ICD-10-PCS; principal; 2016-08-16)
PROC: BW40ZZZ Ultrasonography of Abdomen (ICD-10-PCS; 2016-08-16)
DX: C25.0 Malignant neoplasm of head of pancreas (principal); C78.7 Secondary malignant neoplasm of liver and intrahepatic bile duct; R18.0 Malignant ascites; I10 Essential (primary) hypertension; D63.8 Anemia in other chronic diseases classified elsewhere; Z66 Do not resuscitate; Z93.4 Other artificial openings of gastrointestinal tract status